=== PATIENT | male | born 1960 | race Caucasian/White ===

== ENCOUNTER → 2017-02-18 | Outpatient (CLI) | payer OTHER ==
[~2017-02-18] MED LIST: ASPCH81X PO; ATOR-22 PO; CARDIA PO; CARTIA XT PO; CLOP1TAB5 PO; DILT120C68 PO; DOCU1TAB6 PO; GLUC10007 PO; METO-217 PO; METO50TA16 PO; MULT-506 PO; OMEG10007 PO; PLV75 PO
[2017-02-18 14:04] LABS: CHOLESTEROL/HDL RATIO 4.1
== END | disposition home or self-care (01) ==
LOC: C.LABMFLN 07:50
PROVIDERS: ATTEND Internal Medicine Cardiovascular Disease
DX: E78.00 Pure hypercholesterolemia, unspecified (principal); I10 Essential (primary) hypertension

== ENCOUNTER → 2017-04-05 | Outpatient (CLI) | payer OTHER ==
[~2017-04-05] MED LIST changes: +REGADENOSON 0.4 MG/5 ML SYR ONE
--- NOTE | 2017-04-08 11:27 | MYOCARDIAL PERFUSION SCAN ---
ONE-DAY NUCLEAR MEDICINE TECHNETIUM-99M CARDIOLITE MYOCARDIAL PERFUSION SCAN CLINICAL HISTORY: The patient has a known history of coronary artery disease and experienced an episode of exertional angina pectoris. COMPARISON: None. TECHNIQUE: For the stress portion of the study, 32.4 mCi of Technetium 99 m Cardiolite IV was injected at 1:30 p.m. on 04/05/2017. 30 minutes following the injection, imaging of the heart was performed in multiple projection. For the rest portion of the study, 10.7 mCi of Technetium 99 m Cardiolite was injected IV at 11:50 a.m. One hour following the injection, imaging of the heart was performed in the same projections. For the stress portion of the study, 0.4 mg of Lexiscan was injected intravenously as per protocol. The patient did not experience chest discomfort nor did he develop EKG changes. Following the infusion, the patient was hemodynamically stable without complaints. FINDINGS: The short axis, vertical long axis, horizontal long axis images were reviewed in detail. There is a perfusion defect located in the proximal, mid and distal lateral wall at stress. This area demonstrates normal perfusion at rest. This suggests an area of myocardial ischemia involving the lateral wall. There is no evidence of a myocardial infarction. The left ventricle demonstrates normal systolic function without segmental wall motion abnormalities. The left ventricular ejection fraction is 51%. IMPRESSION: 1. Scintigraphic evidence of lateral wall myocardial ischemia. 2. No evidence of a prior myocardial infarction. 3. No Lexiscan induced chest pain. 4. No Lexiscan induced EKG change. 5. Normal left ventricular ejection fraction of 51% without wall motion abnormalities.
== END | disposition home or self-care (01) ==
LOC: C.NUCL 11:17
PROVIDERS: ATTEND Internal Medicine
DX: I25.10 Atherosclerotic heart disease of native coronary artery without angina pectoris (principal); R07.89 Other chest pain

== ENCOUNTER → 2017-04-11 | Outpatient (CLI) | payer OTHER ==
[~2017-04-11] MED LIST changes: -REGADENOSON 0.4 MG/5 ML SYR ONE
[2017-04-11 14:38] LABS: HEMATOCRIT 44.3 % (42-52); MEAN CORPUSCULAR HEMOGLOBIN 29.1 pg (25-34); MEAN CORPUSCULAR HGB CONC 32.7 g/dl (32-36); MEAN PLATELET VOLUME 10.4 fL (7.4-10.4); PLATELET COUNT 231 K/uL (130-400); RED BLOOD COUNT 4.98 M/uL (4.7-6.1); WHITE BLOOD COUNT 7.22 K/uL (4.8-10.8)
[2017-04-11 14:58] LABS: INR 0.9 (0.9-1.1); PARTIAL THROMBOPLASTIN RATIO 2.1
[2017-04-11 15:10] LABS: BLOOD UREA NITROGEN 17 mg/dl (7-18); BUN/CREATININE RATIO 15.5 (10-20); CARBON DIOXIDE 29 mmol/L (21-32); CHLORIDE 103 mmol/L (98-107); GLUCOSE 136 mg/dl (70-99); SODIUM 140 mmol/L (136-145)
[2017-04-11 15:14] LABS: CALCIUM 10.1 mg/dl (8.5-10.1)
== END | disposition home or self-care (01) ==
LOC: C.LAB 13:04
PROVIDERS: ATTEND Internal Medicine Cardiovascular Disease
DX: Z01.818 Encounter for other preprocedural examination (principal)

== ENCOUNTER 2017-04-16 09:02 | Observation (INO) | payer OTHER ==
[~2017-04-16] VITALS: Ht 177.8 cm; Wt 143.5 kg
[2017-04-16] VITALS (11 sets, daily range): BP systolic 128–181; BP diastolic 63–100; PULSE 66–89; TEMP 36.4–36.9; O2SAT 95–99; Ht 177.8 cm; Wt 143.5 kg
[~2017-04-16 09:02] MED LIST changes: -GLUC10007 PO; -OMEG10007 PO; -PLV75 PO
[2017-04-16] MEDS ORDERED: OMEG10007 PO (09:19)
[2017-04-16] MEDS ORDERED: GLUC10007 PO (09:19)
[2017-04-16] MEDS ORDERED: NiCARDipine HCL INJ 2.5 MG/ML 10 ML AMP ONE (09:23)
[2017-04-16] MEDS ORDERED: NITROGLYCERIN/D5W 100MCG/ML 20ML SYR ONE (09:23)
[2017-04-16] MEDS ORDERED: FENTANYL CITRATE INJ 50 MCG/1 ML 2 ML VIAL ONE (09:23)
[2017-04-16] MEDS ORDERED: HEPARIN SOD (PORCINE) 1000 UNIT/ML 10 ML VIAL ONE (09:23)
[2017-04-16] MEDS ORDERED: MIDAZOLAM HCL 1 MG/ML 2ML VIAL ONE (09:23)
--- NOTE | 2017-04-16 10:02 | History and Physical ---
History & Physical Date April 16, 2017. History of Present Illness Mr. Dowell is a very pleasant 57 year old man with a history of hypertension, hypercholesterolemia, and his coronary artery disease (MILLER to the LAD, March 2012; PCI to RCA and 1st diagonal, October 2014) who returns with chest tightness and a positive stress test. Chest pain with exertion, most notable with doing yard work/chopping wood. Able to walk on level ground without symptoms. Also reports atypical symptoms when gets up in the middle of the night. Stress test done on 04/05/17 showed preserved LV function but lateral wall ischemia. Additional History Hepatic Disease: No Endocrine Disorder: No Kidney Disease: No Hypertension: Yes Heart Disease: Yes Bleeding Tendencies: No Infectious Diseases: No Allergies Coded Allergies: No Known Allergies (Unverified , 09/22/13) Home Medications Scheduled Aspirin (Aspirin Chewable), 81 MG PO DAILY Atorvastatin (Lipitor), 20 MG PO DAILY Diltiazem Hcl Ext Rel (Tiazac), 120 MG PO DAILY Docusate Sodium (Docusate Sodium), 2 TABLETS PO DAILY Fish Oil ([place]-3), 1 CAP PO DAILY Glucosamine Sulfate (Glucosamine), 3,000 MG PO DAILY Metoprolol Succinate (Toprol Xl), 50 MG PO DAILY Multivitamin (Multivitamin), 1 TAB PO DAILY Physical Examination Skin: warm/dry Eyes: normal inspection Neck: supple Respiratory/Chest: lungs clear Cardiovascular: regular rate, rhythm, no edema Abdomen / GI: normal bowel sounds Back: normal inspection Extremities: normal inspection Neurologic/Psych: no motor/sensory deficits Diagnosis CAD Typical angina Positive stress test ASA Classification: ASA Class II Plan of Treatment Proceed with LHC via left radial artery
--- NOTE | 2017-04-16 10:02 | Procedure Note ---
Pre-Mod Sedation Assessment General Date of Moderate Sedation: April 16, 2017. Vital Signs: Vital Signs Past 12 Hours Date Time Temp Pulse Resp B/P Pulse Ox O2 Delivery O2 Flow Rate FiO2 04/16/17 09:08 36.4 83 20 181/100 95 Room Air Review Cardiovascular: regular rate, rhythm, no edema Abdomen: normal bowel sounds, non tender, soft Lungs: chest non-tender, lungs clear, normal breath sounds Pre-Sedation Airway Assessment Oral Cavity: Dentures Short Thick Neck: No Hx of Sleep Apnea: Yes Smoking Status: Never Smoker Mallampati Classification: Class II ASA Classification: Class II Procedure Planning Contraindications-for Mod Sed: None Yes Notes The planned sedation has been discussed with the patient and consent obtained. I have identified the patient, determined the appropriateness of sedation and have assessed the patient immediately prior to the procedure. All medicine(s) and interventions are by my order.
--- NOTE | 2017-04-16 12:17 | Procedure Note ---
Post-Mod Sedation Assessment General Date of Moderate Sedation April 16, 2017. Vital Signs: Vital Signs Past 12 Hours Date Time Temp Pulse Resp B/P Pulse Ox O2 Delivery O2 Flow Rate FiO2 04/16/17 09:08 36.4 83 20 181/100 95 Room Air Review - Discharge Criteria Vital Signs Stable: Yes Alert/Oriented/Conversant: Yes Returned to Baseline Mental St: Yes Nausea Absent/Minimal: Yes Pain/Discomfort/Absent/Minimal: Yes Normal/Baseline Respirations: Yes Active Bleeding?: No Pt Received D/C Instructions: N/A Prescriptions Given: None Specific Proced. D/C Criteria Distal Pulses Present (Cardiac: Yes Groin site assessed-Card Cath: N/A Voided Prior To Discharge: N/A Discharged Patients Adult Escort/Transportation: Yes
[2017-04-16] MEDS ORDERED: CLOPIDOGREL BISULFATE 300 MG TAB PO ONE (12:20)
[2017-04-16] MEDS ORDERED: ONDANSETRON INJ 2 MG/ML 2 ML VIAL IV PRN (13:00)
[2017-04-16] MEDS ORDERED: SODIUM CHLORIDE 0.9% 1000ML 1,000 ML IV SCH (13:00)
[2017-04-16] MEDS ORDERED: ACETAMINOPHEN 325 MG TAB PO PRN (13:00)
--- NOTE | 2017-04-16 14:29 | Cardiac Catheterization ---
Procedure Note Procedure Date April 16, 2017. Pre-Procedure Diagnosis Angina, Positive Stress Test, CAD AUC Score 7 Post-Procedure Diagnosis Severe CAD, Successful PCI Procedure(s) Performed Coronary Angiography Geological Technician Dr. Baeza Public Health Representative(s) [place] Estimated Blood Loss 22 Medication(s) Clopidogrel, Fentanyl, Heparin, Nicardipine, Nitroglycerin, Versed, Lidocaine 1% Summary of Findings Indication: Angina/Positive stress Access: 6Fr Slender Left Radial Artery Catheters: JL4, JR4, JANES; RCB Guide Findings: LM - Mildly calcified, 30-40% distal stenosis LAD - Chronically occluded after 1st diagonal. 1st diagonal stent widely patent with distal luminal irregularities. Circumflex - Small non-dominant diffusely diseased circumflex, 70% ostial, 50-60 % mid segment stenosis. Very small OM1 with 80% ostial stenosis. Very small bifurcating OM3 completely occluded at ostium and fills distally via left to left collaterals. RCA - Dominant, 40% focal mid segment stenosis, widely patent distal RCA into PDA stent; distal PDA completely occluded, very distal vessel fills via right to right collaterals. 90% stenosis at ostium of R-PLB. MILLER-LAD patent with luminal irregularities distal to anastomosis; Retrofills a small-moderate caliber 2nd diagonal with an 80-90% stenosis in the mid segment of the LAD just upstream from the anastomosis. -- PCI -- Antithrombotic therapy: Heparin, Clopidogrel Procedure: RCA cannulated with RCB guide BMW wire passed across prior stent into PDA. Distal PDA occlusion unable to be wired, appeared chronic. Whisper wire passed through stent struts across ostial PLB stenosis into distal vessel PLB lesion predilated with 2.0 compliant balloon 2.25 x 12 Resolute ANN placed to ostial PLB (T-stent with minimal protrusion) Prior distal RCA stent dilated with 3.0 NC balloon Kissing balloon inflation performed with 3.0 NC balloon in distal RCA, 2.5 compliant balloon in PLB. IC vasodilators administered for spasm Post procedure MARGIE 3 flow, stent well expanded with minimal residual stenosis and no apparent cardiac complications. Arterial Closure: TR Band Summary: 1. Multivessel coronary artery disease - 30-40% distal LM - Occluded mid LAD. Patent 1st diagonal stent - Diffusely diseased circumflex - Patent RCA stent. 90% ostial R-PLB stenosis. Occluded distal PDA - Patent MILLER to LAD. 70-80% stenosis upstream from anastomosis prior to retrofilled 2nd diagonal 2. Successful PCI of ostial PLB with 2.25 x 12 Resolute ANN (post-dilated with 2.5 balloon) Recommendations: To PCU for continued monitoring Loaded with 300mg plavix in [facility] tester laboratory Continue dual-antiplatelet therapy with ASA/Plavix for 1 year Continue statin, ASCVD risk factor modification Titrate anti-anginals for circumflex, mid LAD disease. Hemodynamics Rest Ao: 132/77/100 Final Ao: 134/72/97 LV: -- Recommendations PCI without planned CABG Specimens None Radiation Exposure (mGy) 6204 Contrast (mls) 190 Fluids (cc crystalloids) 200 Drains None Anesthesia Moderate (Start Procedural Complication(s) None Disposition PCU ACC Data Cardiac Status Clinical evaluation leading to the procedure CAD Presntation: Stable angina, Positive Stress Test Anginal Classification: CCS III Heart Failure: No, NYHA Class: CCS I Cardiogenic Shock w/in 24Hrs: No Imaging studies past 6 months: Yes Stress studies past 6 months: Yes Standard Exercise Stress Test: No Stress Echocardiogram: Yes - Positive, Risk/Extent of Ischemia (Intermediate) Stress Testing w/SPECT MPI: No Cardiac CTA: No Coronary Anatomy Dominant: Right Left Main (% Stenosis): Ostial, Distal (20-30) LAD (% Stenosis): Mid (100) D1 (% Stenosis): Normal (Patent stent) Circumflex (% Stenosis): Ostial (70) RCA (% Stenosis): Mid (40) R PDA (% Stenosis): Distal (100) R PL1 (% Stenosis): Ostial (90) Diagnostic Physician's Name: Renan Baeza MD Status: Elective Closure Device Percutaneous Entry Location: Radial Closure Device: Radial Band Recommendations: PCI without planned CABG PCI Indication: Stable Angina, Angina despite med therapy, + Stress Test Lesion Segment Name: Ostial PLB Culprit Artery: Yes Stenosis Prior to Rx (%): 90 Chronic Total Occlusion: No IVUS: No FFR: No Pre-Procedure MARGIE Flow: 3 Previously Treated Lesion: No Lesion Complexity: High/C Lesion Length (mm): 12 Thrombus Present: No Bifurcation Lesion: Yes Guidewire Across Lesion: Yes Guidewire: Stenosis Post-Procedure (%): 0 Post-Procedure MARGIE Flow: 3 Device(s) Deployed: Yes Type of Device(s): 2.25 x 12 Resolute ANN Intraprocedure Events Significant Dissection: No Perforation: No
[2017-04-16] MEDS ORDERED: IV FLUIDS COMPLETED PRN (14:45)
[2017-04-16] MEDS ORDERED: NURSING VERBAL MED ORDER ONE (22:45)
[2017-04-17 03:56] VITALS: BP 139/80; PULSE 68; TEMP 36.7; O2SAT 96
[2017-04-17 05:54] LABS: BASO % 0.1 %; BASO ABS # 0.01 K/uL (0-0.2); COMPLETE YES; HEMATOCRIT 41.8 % (42-52); IG% 0.3 %; LYMPH % 20.1 %; LYMPH ABS # 1.41 K/uL (1.2-3.4); MEAN CELL VOLUME 88.9 fL (80-100); MEAN CORPUSCULAR HEMOGLOBIN 28.1 pg (25-34); MEAN CORPUSCULAR HGB CONC 31.6 g/dl (32-36); MEAN PLATELET VOLUME 9.6 fL (7.4-10.4); MONO % 12.4 %; NEUT % 65.1 %; PLATELET COUNT 211 K/uL (130-400); WHITE BLOOD COUNT 7.02 K/uL (4.8-10.8)
[2017-04-17 06:28] LABS: BUN/CREATININE RATIO 15.9 (10-20); CALCIUM 8.5 mg/dl (8.5-10.1); CREATININE 0.83 mg/dl (0.60-1.40); POTASSIUM 4.1 mmol/L (3.5-5.1)
[2017-04-17 07:15] VITALS: BP 124/71; PULSE 69; TEMP 36.8; O2SAT 95
[2017-04-17] MEDS ORDERED: MULTIVITAMIN TAB PO SCH ×2 (09:00→21:00)
[2017-04-17] MEDS ORDERED: METOPROLOL SUCC 50MG EXT REL TAB PO SCH ×2 (09:00→21:00)
[2017-04-17] MEDS ORDERED: DILTIAZEM HCL 120 MG EXT REL CAP PO SCH ×2 (09:00→21:00)
[2017-04-17] MEDS ORDERED: CLOPIDOGREL BISULFATE 75 MG TAB PO SCH ×2 (09:00→21:00)
[2017-04-17] MEDS ORDERED: ATORVASTATIN 20 MG TAB PO SCH ×2 (09:00→21:00)
[2017-04-17] MEDS ORDERED: OMEGA-3 (PURIFIED FISH OIL) 1 GM CAP PO SCH ×2 (09:00→21:00)
[2017-04-17] MEDS ORDERED: ASPIRIN 81 MG ECTAB PO SCH ×2 (09:00→21:00)
[2017-04-17] MEDS ORDERED: PLV75 PO (11:21)
--- NOTE | 2017-04-17 11:23 | Discharge Instructions ---
Discharge Instructions Procedure Procedure Date: April 17, 2017. Reason for Visit: CAD. Discharge Discharge Date: April 17, 2017. Discharge Diagnosis: Coronary artery disease Last Recorded Wt (Kilograms): 143.500 Anesthesia Post Anesthesia Instructions: If you have had General Anesthesia or IV Sedation: * Do not drive today. * Resume driving when surgeon permits. * Do not make important decisions or sign legal documents today. * Call surgeon for: 1. Temperature elevations greater than 101 degrees F. 2. Uncontrollable pain. 3. Excessive bleeding. 4. Persistent nausea and vomiting. 5. Medication intolerance (nausea, vomiting or rash). * For nausea and vomiting use only clear liquids such as: tea, soda, bouillon until nausea subsides, then gradually increase diet as tolerated. * If you have any concerns or questions, call your surgeon's office. If physician is unavailable and it is an emergency, call 911 or go to the nearest emergency room. Instructions Activity Recommendations: limitations as noted below Recommended Home Diet: resume previous diet Allergies: Coded Allergies: No Known Allergies (Unverified , 09/22/13) Follow Up Additional Instructions: ACTIVITY RECOMMENDATIONS: It is common to feel weak and fatigue for a few days. * Do not drive or operate any motorized equipment for the next three days. * Limit stair usage (2 or 3 trips a day only) for the next three days. * Do not lift anything heavier than 10 pounds for the next three days. * Do not engage in vigorous exercise or any sports for the next five days. * You may shower the day after your procedure, but do not immerse the area for three days. Cleanse the site gently with soap and water. SPECIAL CARE INSTRUCTIONS: * You may replace the pressure dressing or band-aid the morning after the procedure. * After your procedure, it is normal to have a small bruise or small lump at the site. Examine your site daily for any change in the bruise or lump, redness, swelling, drainage or numbness. Notify your doctor if any change. BLEEDING: * If there is a small amount of bleeding at the site, lie down and apply firm pressure with a clean cloth for ten minutes. When the bleeding stops, lie quietly keeping the procedure limb straight for six hours. Notify your doctor as soon as possible. * If the bleeding does not stop after ten minutes or if there is a large amount of bleeding or spurting, call 911 immediately. Continue to lie down and hold firm pressure until help arrives. SKIN IRRITATION: * You may experience some redness and/or swelling in the area where radiation was administered. If any skin irritation occurs, please contact your family physician. FOLLOW UP VISIT: Keep any scheduled doctor appointments. Follow-up with: Dr. Lilly 1 month. Primary care in next 1-2 weeks. Kim Chadwick Recommendations: Call your doctor if: * Temperature above 101 degrees * Pain not relieved by pain medicine ordered * There is increased drainage or redness from any incision * You have any unanswered questions or concerns. Your Doctors Instructions noted above were prepared by provider Yonatan Baeza. Patient Signature Section: Patient Instructions Signature Page Uziel Dowell Patient (or Guardian) Signature/Date: I have read and understand the instructions given to me by my caregivers. Caregiver/RN/Doctor Signature/Date: The above-named patient and/or guardian has received patient instructions on this date. + Original Patient Signature Page (only) stays with chart. Please make copy for patient.
[2017-04-17 11:26] VITALS: BP 144/89; PULSE 66; TEMP 36.8; O2SAT 94
[2017-04-17 11:33] VITALS: BP 144/89; PULSE 66; TEMP 36.8; O2SAT 94
--- NOTE | 2017-04-19 08:38 | DISCHARGE SUMMARY ---
ADMISSION DIAGNOSIS: Coronary artery disease. DISCHARGE DIAGNOSES: Coronary disease, status post percutaneous coronary intervention with drug-eluting stent. PROCEDURES: 1. Cardiac catheterization. 2. PCI. HISTORY OF PRESENT ILLNESS: Mr. Dowell is a 57-year-old male with history of hypertension, hyperlipidemia and coronary artery disease status post MILLER to his LAD in March 2012 and prior PCI to his RCA and first diagonal on October 2014; who returned with chest tightness and a positive stress. He had noted worsening chest pain with exertion, most notable when doing yard work and chopping wood. He was able to walk on level ground without symptoms. Stress test done on 04/05/2017 showed preserved LV function, but suggestion of lateral wall ischemia. HOSPITAL COURSE: The patient underwent cardiac catheterization on 04/16/2017, and study showed patent MILLER to LAD with retrofilling to second diagonal and 80% to 90% stenosis in the mid segment of LAD prior to that diagonal, severely diffusely diseased circumflex, which was small and unchanged from prior and RCA which showed a patent distal RCA-PDA stent with a 90% stenosis at the ostium and his right PLB coming off the prior stent. Decision was made to proceed with PCI. Complex PCI was undertaken with stent placement to the ostium of the PLB which was a 2.25 x 12 mm Resolute drug-eluting stent (T-stenting with minimal protrusion). Kissing balloon inflation was completed with good angiographic result. The patient was kept overnight for additional inpatient observation and monitoring. He had no further events of chest pain overnight. He had no significant event on telemetry, and in the next morning he was feeling well and ready for discharge. Going forward, we will plan to continue to titrate antianginal regimen for his diffuse circumflex disease and residual mid LAD disease, prior to second diagonal. The patient can follow up with cardiology in 2-3 weeks. He will follow with Dr. Fernandez in the interim. DISCHARGE MEDICATIONS: 1. Clopidogrel 75 mg daily. 2. Aspirin 81 daily. 3. Atorvastatin 20 mg daily. 4. Diltiazem 120 mg daily. 5. Docusate 100 mg daily. 6. Fish oil 1 tab p.o. daily. 7. Glucosamine. 8. Metoprolol 50 mg daily. 9. Multivitamin 1 tab p.o. daily. MTDD
== END 2017-04-17 12:07 | disposition home or self-care (01) ==
LOC: ENRESERVDT → ENRESERVTM → C.CATH 09:02 → C.2E 12:54
PROVIDERS: ADMIT Internal Medicine Interventional Cardiology; ATTEND Internal Medicine Interventional Cardiology
DX: I25.10 Atherosclerotic heart disease of native coronary artery without angina pectoris (principal); I10 Essential (primary) hypertension; E78.00 Pure hypercholesterolemia, unspecified; Z79.82 Long term (current) use of aspirin; I20.9 Angina pectoris, unspecified

== ENCOUNTER → 2017-05-14 | Outpatient (CLI) | payer OTHER ==
[~2017-05-14] MED LIST changes: -CARDIA PO; -CARTIA XT PO; -CLOP1TAB5 PO; +GLUC10007 PO; -METO50TA16 PO; +OMEG10007 PO; +PLV75 PO
[2017-05-14 13:30] LABS: CHOLESTEROL/HDL RATIO 3.5
== END | disposition home or self-care (01) ==
LOC: C.LABMFLN 07:59
PROVIDERS: ATTEND Internal Medicine Cardiovascular Disease
DX: E78.00 Pure hypercholesterolemia, unspecified (principal)

== ENCOUNTER → 2018-03-28 | Outpatient (CLI) | payer OTHER ==
[~2018-03-28] MED LIST changes: +ASPI81CH2 PO; +DILT240C48 PO; +IMDSR30 PO
[2018-03-28 12:40] LABS: BASO % 0.3 %; BASO ABS # 0.02 K/uL (0-0.2); EOS % 2.3 %; EOS ABS # 0.17 K/uL (0-0.5); HEMATOCRIT 42.7 % (42-52); IG# 0.02 K/uL (0.00-0.02); LYMPH % 16.6 %; LYMPH ABS # 1.25 K/uL (1.2-3.4); MEAN CELL VOLUME 88.8 fL (80-100); MEAN CORPUSCULAR HEMOGLOBIN 29.1 pg (25-34); MEAN CORPUSCULAR HGB CONC 32.8 g/dl (32-36); MEAN PLATELET VOLUME 10.4 fL (7.4-10.4); MONO % 12.8 %; MONO ABS # 0.96 K/uL (0.11-0.59); NEUT % 67.7 %; PLATELET COUNT 213 K/uL (130-400); RED CELL DISTRIBUTION WIDTH CV 14.5 % (11.5-14.5); RED CELL DISTRIBUTION WIDTH SD 47.2 fL (36.4-46.3); WHITE BLOOD COUNT 7.52 K/uL (4.8-10.8)
[2018-03-28 12:48] LABS: INR 0.9 (0.9-1.1); PTT PATIENT 29.9 SECONDS (21.0-31.0)
[2018-03-28 13:42] LABS: ALBUMIN 3.3 gm/dl (3.4-5.0); ALT/SGPT 30 U/L (12-78); AST/SGOT 18 U/L (15-37); BLOOD UREA NITROGEN 17 mg/dl (7-18); CALCIUM 8.9 mg/dl (8.5-10.1); CARBON DIOXIDE 29 mmol/L (21-32); CHOLESTEROL 143 mg/dl (0-200); CREATININE 0.92 mg/dl (0.60-1.40); GLUCOSE 93 mg/dl (70-99); POTASSIUM 4.3 mmol/L (3.5-5.1); SODIUM 140 mmol/L (136-145)
[2018-03-28 13:45] LABS: ALKALINE PHOSPHATASE 74 U/L (45-117); LDL CHOLESTEROL (DIRECT) 95 mg/dl; TOTAL PROTEIN 7.1 gm/dl (6.4-8.2)
== END | disposition home or self-care (01) ==
LOC: C.LABMFLN 07:44
PROVIDERS: ATTEND Internal Medicine
DX: R73.9 Hyperglycemia, unspecified (principal); I25.10 Atherosclerotic heart disease of native coronary artery without angina pectoris; E78.5 Hyperlipidemia, unspecified

== ENCOUNTER → 2018-03-31 | Day surgery (SDC) | payer OTHER ==
[~2018-03-31] VITALS: Ht 180.3 cm; Wt 145.0 kg
[~2018-03-31] MED LIST changes: +FENTANYL CITRATE INJ 50 MCG/1 ML 2 ML VIAL ONE; +HEPARIN SOD (PORCINE) 1000 UNIT/ML 10 ML VIAL ONE; +LIDOCAINE HCL 1% 20 ML VIAL ONE; +MIDAZOLAM HCL 1 MG/ML 2ML VIAL ONE; +NITROGLYCERIN/D5W 100MCG/ML 20ML SYR ONE; +NiCARDipine HCL INJ 2.5 MG/ML 10 ML AMP ONE
[2018-03-31 08:52] VITALS: BP 136/68; PULSE 66; TEMP 36.5; O2SAT 96; Ht 180.3 cm; Wt 145.0 kg
--- NOTE | 2018-03-31 11:24 | History & Physical Bridge Note ---
H&P Re-Evaluation Bridge Note: I have examined the patient, reviewed the History & Physical and in the interval since the performance of the History & Physical I have noted the following changes of clinical significance: No changes noted
--- NOTE | 2018-03-31 12:22 | Pre Sedation Assessment ---
Pre Sedation Assessment General Date of Sedation: Mar 31, 2018. Vital Signs Past 12 Hours Date Time Temp Pulse Resp B/P (MAP) Pulse Ox O2 Delivery O2 Flow Rate FiO2 03/31/18 08:52 36.5 66 16 136/68 (90) 96 Room Air Review Cardiovascular: regular rate, rhythm, no edema Lungs: chest non-tender, lungs clear Pre-Sedation Airway Assessment Smoking Status: Never Smoker Hx of Sleep Apnea: Yes Hx of difficult intubation: No Short Thick Neck: Yes Thyro-mental Distance: > 3 Finger Breadths Oral Cavity: Dentures Mallampati Classification: Class III ASA Classification: Class III NPO Status Date of Last Intake of Fluids: Mar 30, 2018 Time of Last Intake of Fluids: 2200 Date of Last Intake of Solids: Mar 30, 2018 Time of Last Intake of Solids: 1800 Procedure Planning Contraindications for Sedation: None Current Medications Reviewed: Yes Notes The planned sedation has been discussed with the patient. Informed Consent was obtained. I have identified the patient, determined the appropriateness of sedation and have assessed the patient immediately prior to the procedure. All medicine(s) and interventions are by my order.
--- NOTE | 2018-03-31 12:29 | Post Sedation Assessment ---
Post Sedation Assessment General Date of Sedation Mar 31, 2018. Vital Signs: Vital Signs Past 12 Hours Date Time Temp Pulse Resp B/P (MAP) Pulse Ox O2 Delivery O2 Flow Rate FiO2 03/31/18 08:52 36.5 66 16 136/68 (90) 96 Room Air Post Procedure Recovery Score Activity: (2) Moves 4 extremities * Respiration: (2) Deep breath/cough Circulation: (2) +/-20% PreAnes Value Consciousness: (2) Fully Awake Oxygen Saturation: (1) O2 needed for >90% Post Anesthesia Score: 9 Discharge Sedation Level of Care: Fast Track Phase II Post Sedation Plan On clinical assessment, the patient appears to have tolerated the sedation without complications. Patient is recovering as anticipated. Patient will continue to be monitored by nursing and may be discharged when sedation discharge criteria are met per below protocol. Upon Completions of procedure and additional 15 minutes continue every 5 minute vital signs and the P.A.R. score; then discharge to a Phase I or Fast Track to Phase II per the following guidelines: * Discharge Patient to appropriate Phase II area if PAR is 8 or greater or return to pre- procedure baseline. The post - procedure orders will be as directed. * If PAR score is less than 8 or not return to pre-procedure baseline then patient will follow Phase I monitoring till PAR is reached for Phase II. The Phase I may be done in procedure room or may call to secure a Phase I area. * If naloxone or flumazenil are used for reversal, hold in Phase I for an additional 60 -120 minutes before discharge to Phase II. Please call the Sedation Physician to re-evaluate and complete post-note for discharge to Phase II area. Do NOT discharge from procedure sedation or Phase 1 until post- sedation evaluation note is complete by procedure /sedation MD Sedation Discharge Instructions to be given to the patient at discharge to home.
--- NOTE | 2018-03-31 12:47 | Cardiac Catheterization ---
Procedure Note Procedure Date Mar 31, 2018. Pre-Procedure Diagnosis Angina AUC Score 7 Post-Procedure Diagnosis Severe CAD Procedure(s) Performed Coronary Angiography, Bypass Graft Angiography Pleat Patternmaker Aryan Derrick Boat Captain(s) Eulalio Estimated Blood Loss 15 Medication(s) Fentanyl, Heparin, Nicardipine, Nitroglycerin, Versed, Lidocaine 1% Summary of Findings Indication: Accelerating angina Access: 6 FR left radial artery Catheters: JL4, JR4; RCB guide Findings: LM - Mildly calcified, 30-40% distal stenosis LAD - Chronically occluded after 1st diagonal. 1st diagonal stent widely patent with distal luminal irregularities. Circumflex - Small non-dominant diffusely diseased circumflex, 70% ostial, 50-60 % mid segment stenosis. Very small OM1 with 80% ostial stenosis. Very small bifurcating OM3 completely occluded at ostium and fills distally via left to left collaterals. RCA - Dominant, 40% focal mid segment stenosis, widely patent distal RCA into PDA stent; distal PDA completely occluded. Right PLB occluded at ostium in prior stent, fills faintly via right to right collaterals. MILLER-LAD patent with luminal irregularities distal to anastomosis; Retrofills a small-moderate caliber 2nd diagonal with an 80-90% stenosis in the mid segment of the LAD just upstream from the anastomosis. Attempts made at PCI of previously stented right PLB. Unable to pass wire into PLB and procedure aborted. No postprocedure coronary complications. Arterial Closure: TR band Summary: 1. Multivessel coronary artery disease (new finding from 04/2017--occluded previously placed stent to right PLB with faint filling via right to right collaterals) - 30-40% distal LM - Occluded mid LAD. Patent 1st diagonal stent - Diffusely diseased circumflex - Patent RCA stent. Occluded distal PDA - Patent MILLER to LAD. 70-80% stenosis upstream from anastomosis prior to retrofilled 2nd diagonal Recommendations: Unable to pass wire across completely occluded ostial PLB in-stent lesion. Recommend maximizing antianginal therapy -- will increase Imdur from 60 to 120mg daily. If persistent life-limiting symptoms would consider switching to a dihydropyridine CCB. Ranexa also could be considered. Continued ASCVD risk factor modification Follow-up with Dr. Ron Izquierdo and Dr. 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
--- NOTE | 2018-03-31 13:19 | Discharge Instructions ---
Discharge Instructions Procedure Procedure Date: Mar 31, 2018. Reason for Visit: CAD. Discharge Discharge Date: Mar 31, 2018. Discharge Diagnosis: Coronary artery disease Last Recorded Wt (Kilograms): 145 Anesthesia Post Anesthesia Instructions: If you have had General Anesthesia or IV Sedation: * Do not drive today. * Resume driving when surgeon permits. * Do not make important decisions or sign legal documents today. * Call surgeon for: 1. Temperature elevations greater than 101 degrees F. 2. Uncontrollable pain. 3. Excessive bleeding. 4. Persistent nausea and vomiting. 5. Medication intolerance (nausea, vomiting or rash). * For nausea and vomiting use only clear liquids such as: tea, soda, bouillon until nausea subsides, then gradually increase diet as tolerated. * If you have any concerns or questions, call your surgeon's office. If physician is unavailable and it is an emergency, call 911 or go to the nearest emergency room. Instructions Activity Recommendations: limitations as noted below Recommended Home Diet: resume previous diet, low cholesterol Allergies: Coded Allergies: No Known Allergies (Unverified , 09/22/13) Follow Up Additional Instructions: ACTIVITY RECOMMENDATIONS: Excess manipulation of the wrist should be avoided for the next 24-48 hours. * No lifting over 2 pounds (approximately a 1/2 gallon of milk) with the utilized arm for 24 hours. * No strenuous activity such as bowling or tennis for 3 days. * Keep the site of the procedure covered with a bandage for 24 hours. *You may shower the day after the procedure. Do not take a tub bath or submerge the puncture site in water for the next 3 days. *Do not operate any motorized equipment for 3 days. SPECIAL CARE INSTRUCTIONS: The site may be slightly bruised and sore following your procedure. Should any of the following occur, contact the Dr. who performed your procedure. 1. Redness/inflammation, swelling, chills, or fever, or colored drainage at procedure site within 3-7 days after your procedure. 2. Coldness, discoloration, ongoing numbness, severe pain, or swelling. Expect mild tingling of hand and tenderness at the puncture site for up to three days. If this persists beyond three days, or other symptoms develop, notify the Dr. who performed your procedure. BLEEDING: If the procedure site on your wrist begins to bleed, do not panic 1. Place 1 or 2 fingers firmly just slightly above the insertion site to stop the bleeding. You may be able to feel your pulse as you hold pressure. 2. Lift your finger after 5 minutes to see if the bleeding has stopped. 3. Once the bleeding has stopped, gently wipe the wrist area clean with a bandage. * If the bleeding from your wrist does not stop after 10 minutes, or if there is a large amount of bleeding or spurting, call 911 (do not drive yourself to the hospital). SKIN IRRITATION: * You may experience some redness and/or swelling in the area where radiation was administered. If any skin irritation occurs, please contact your family physician. FOLLOW UP VISIT: Keep any scheduled doctor appointments. Follow-up with: Dr. Ron Izquierdo in 2-[address] Lilly in 1 month. Kim Chadwick Recommendations: Call your doctor if: * Temperature above 101 degrees * Pain not relieved by pain medicine ordered * There is increased drainage or redness from any incision * You have any unanswered questions or concerns. Your Doctors Instructions noted above were prepared by provider Yonatan Baeza. Patient Signature Section: Patient Instructions Signature Page Uziel Dowell Patient (or Guardian) Signature/Date: I have read and understand the instructions given to me by my caregivers. Caregiver/RN/Doctor Signature/Date: The above-named patient and/or guardian has received patient instructions on this date. + Original Patient Signature Page (only) stays with chart. Please make copy for patient.
[2018-03-31 14:30] VITALS: BP 156/88; PULSE 72; O2SAT 96
== END | disposition home or self-care (01) ==
LOC: C.CATH 08:42
PROVIDERS: ATTEND Internal Medicine Cardiovascular Disease
DX: I25.10 Atherosclerotic heart disease of native coronary artery without angina pectoris (principal); E78.5 Hyperlipidemia, unspecified; E66.01 Morbid (severe) obesity due to excess calories; Z91.81 History of falling